=== PATIENT | female | born 1975 | race Caucasian/White ===

== ENCOUNTER 2025-07-15 07:11 | Outpatient (CLI) | payer MEDICAID ==
[2025-07-15 08:03] VITALS: PULSE 78; RESP 15; O2SAT 97
--- NOTE | 2025-07-15 16:20 | PROCEDURE NOTE - Respiratory ---
Procedure Note-Respiratory Providers to CC Copies To 1: RERE DOOLEY DO Procedure Name: This is a spirometry study dated July 15, 2025. Spirometry measurements: There is substantial reduction in both the forced vital capacity and the FEV1 measurements. The FEV1 ratio is also quite reduced. All of the measured flow rates are quite poor. Bronchodilator was not administered as part of the study. Conclusion: This study is severely abnormal. There is evidence for severe obstructive ventilatory defect. These findings are consistent with the patient's diagnosis of advanced COPD. Bronchodilator therapy should continue for this patient. We have a previous study for comparison dated 12 months earlier. Over the past 12 months the vital capacity has dropped from 1.8 L to 1.59 L. The FEV1 has dropped from 0.88 L to 0.75 L. close pulmonary follow-up is recommended. RITIKA CLARKE MD Jul 15, 2025 16:20
== END 2025-07-15 23:59 | disposition home or self-care (01) ==
LOC: RT 07:11
PROVIDERS: ATTEND Internal Medicine
DX: J44.9 Chronic obstructive pulmonary disease, unspecified (principal)
CPT/HCPCS: 94010; 94760